=== PATIENT | female | born 1955 | race African-American/Black ===

== ENCOUNTER → 2017-02-15 | Outpatient (CLI) | payer OTHER ==
--- NOTE | ~2017-02-15 | MR17 ---
[facility] A Service of [facility] & [facility] RADIOLOGY TEXT RESULTS PATIENT: RAYSA PITTMAN LOCATION: [facility] : 59 UNIT #: [id number] AGE: [address]: Eleazar Cline II, MD SEX: F ORDER DR: [id number] [facility] [address] [place], [place] [address] [id number] O MR#: [id number] Acc #: [id number] NAME: RAYSA PITTMAN : 1955 SEX: F STUDY DATE/TIME: 02/15/2017 18:26 UNIT: [facility] ROOM: STUDY DESCRIPTION: MR Brain WWo Contrast Attending Physician: Eleazar Cline II., M.D. Referring Physician: Eleazar Cline II., M.D. Ordering Physician: Eleazar Cline II., M.D. Primary Care Physician: Primary Care Physician No MRI CENTER REPORT This report is preliminary unless electronic signature is present. EXAM MRI of the brain with and without FINDINGS Atypical neuralgia, right-sided facial pain, electric shooting pain for 6 months. No known injury. No history of cancer. COMPARISON None COMMENT MRI of the brain was performed prior to and following intravenous administration of 20 mL of MultiHance. There is no abnormally restricted diffusion. There is no Chiari-I malformation. Major intracranial flow voids are maintained. Mastoid air cells are clear. Paranasal sinuses are clear. Gaze is disconjugate. There is prominence of perivascular spaces in general and mild nonspecific white matter disease likely due to small vessel disease. There is no MRI evidence for intracranial hemorrhage. There is a mass lesion seen centered at the right-sided cerebellopontine angle. It is extraaxial in location relatively lower in signal intensity on T1-weighted imaging and intermediate to higher in signal intensity on T2-weighted imaging. It enhances fairly homogeneously with contrast and it is associated with a dural tail. It appears to arise from undersurface of the right side tentorium cerebellum anteriorly and it extends inferiorly to lie lateral to the right hemipons such that it results in mass effect upon the right side of the hodan and right middle cerebellar peduncle. It is intimately associated with the medial posterior right petrous ridge and extends into the right internal auditory canal. The epicenter of the mass appears to be in the cistern despite involvement of the internal auditory canal. Extension along the seventh and eighth nerve STS. [facility] A Service of [facility] RADIOLOGY TEXT RESULTS PATIENT: RAYSA PITTMAN LOCATION: [facility] : 59 UNIT #: [id number] AGE: [address]: Eleazar Cline II, MD SEX: F ORDER DR: susana to about the mid portion of the canal; the intracanalicular component is about 6.0 mm in length and 3.0 mm in diameter. The cisternal component of the mass is up to about 2.2 cm SI dimension x 2.4 cm AP dimension x 0.9 cm ML dimension. The dural tail extends along the tentorium. Study is performed as a routine brain MRI rather than a trigeminal or IAC protocol. Allowing for this the mass extends into the posterior aspect of Meckel's cave on the right and also involves the expected course of the trigeminal nerve on the right in the cistern and this should account for the atypical facial pain. I would recommend this patient undergo additional higher resolution imaging with a trigeminal nerve protocol with and without contrast to include the internal auditory canal to better delineate full extent. Please correlate as well for symptomatic involvement of the seventh and eighth nerve complex on the right. It does not appear to be direct invasion of the brainstem at this time. Mild signal abnormality in the hodan is probably due to small vessel disease. This is probably a meningioma rather than acoustic schwannoma given overall characteristics. Less likely consideration would be lymphoma or a dural metastasis in the appropriate clinical setting. IMPRESSION 1. There is an extraaxial enhancing mass lesion centered in the right cerebellopontine angle about 2.4 x 0.9 x 2.2 cm dimension. For reasons discussed above it is felt most likely to be a meningioma with less likely considerations being acoustic schwannoma, lymphoma or dural metastatic disease. The extent of the mass does include expected course of the cisternal right trigeminal nerve and the more posterior aspect of Meckel's cave on the right side and this should account for the patient's atypical right facial pain. Additionally, there is some extension into the internal auditory canal and please correlate for clinical evidence of seventh and eighth nerve complex dysfunction. Study is performed as a routine brain MRI and for this reason I would recommend the patient return for pre and post contrast imaging using a trigeminal nerve protocol to include the internal auditory canal. 2. Otherwise mild probable sequelae of small vessel disease. STAT * RESULT Dictated by... Krystal Barroso M.D. THIS IS AN ELECTRONICALLY VERIFIED REPORT Krystal Barroso M.D. at 02/16/2017 4:29 PM SOHAIL/syed TD: 02/16/2017 10:58 JOB #: [id number] [facility] A Service of [facility] & [facility] RADIOLOGY TEXT RESULTS PATIENT: RAYSA PITTMAN LOCATION: [facility] : 59 UNIT #: [id number] AGE: [address]: Eleazar Cline II, MD SEX: F ORDER DR: MRI CENTER REPORT Page 1 of 1 COPY
[2017-02-15 22:50] LABS: POC - CREATININE 1.27 mg/dL (0.44-1.03)
== END | disposition home or self-care (01) ==
LOC: CMRI 17:00
PROVIDERS: Psychiatry & Neurology Neurology
DX: M79.2 Neuralgia and neuritis, unspecified (principal); G93.89 Other specified disorders of brain
CPT/HCPCS: 70553; 82565; A9577